=== PATIENT | female | born 1970 | race African-American/Black ===

== ENCOUNTER 2017-07-07 09:26 | Inpatient (IN) | payer MEDICAID, OTHER ==
[~2017-07-07] VITALS: Ht 149.9 cm; Wt 64.4 kg
[~2017-07-07 09:26] MED LIST: ALBUTEROL INH; CLONIDINE PO; HCTZ PO; IBUP-2030 PO; LOSA50TA20 PO; NORVASC PO
[2017-07-07 10:10] LABS: BASOPHILS % 0.8 % (0.0-2.0); EOSINOPHILS % 0.7 % (0.0-5.0); HEMATOCRIT. 36.7 % (36.0-48.0); HEMOGLOBIN. 12.4 g/dL (12.0-16.0); LYMPHOCYTES % 24.8 % (20.0-50.0); MEAN CORPUSCULAR HEMOGLOBIN 31.1 pg (28.0-32.0); MEAN CORPUSCULAR VOLUME 92.5 fL (81.0-99.0); MEAN PLATELET VOLUME 7.9 fl (7.4-10.4); NEUTROPHILS % 65.7 % (40.0-76.0); PLATELET 282 x1000/uL (130-400); RED BLOOD CELL COUNT 3.97 mill/uL (4.2-5.4); RED CELL DISTRIBUTION WIDTH 14.2 % (11.6-14.6)
[2017-07-07 10:15] LABS: CHLORIDE 105 mEq/L (98-107)
[2017-07-07] MEDS ORDERED: KETOROLAC 15MG/ML VIAL IV ONE (11:45)
[2017-07-07] MEDS ORDERED: ASPIRIN 81MG TABLET PO ONE (13:00)
[2017-07-07] MEDS ORDERED: MORPHINE SULFATE 4 MG/ML CPJ (NOT FOR IM USE) IV ONE (13:00)
[2017-07-07] MEDS: SODIUM CHLORIDE 0.45% 1,000 ML IV SCH (14:57)
[2017-07-07] MEDS ORDERED: LORAZEPAM 0.5MG TABLET PO PRN (15:00)
[2017-07-07] MEDS: LOSARTAN POTASSIUM 25 MG TABLET PO SCH ×2 (15:00→21:10)
[2017-07-07] MEDS ORDERED: NA PHOS,M-B/NA PHOS,DI-BA ENEMA 118ML PR PRN (15:00)
[2017-07-07] MEDS ORDERED: IPRATROPIUM/ALBUTEROL 0.5-3(2.5)MG/3ML NEB INH PRN (15:00)
[2017-07-07] MEDS ORDERED: ACETAMINOPHEN 650MG SUPP PR PRN (15:00)
[2017-07-07] MEDS ORDERED: DOCUSATE SODIUM 100MG CAPSULE PO PRN (15:00)
[2017-07-07] MEDS ORDERED: HYDROCODONE/ACETAMINOPHEN 10/325MG TABLET PO PRN (15:00)
[2017-07-07] MEDS ORDERED: CLONIDINE 0.1MG TABLET PO PRN (15:00)
[2017-07-07] MEDS ORDERED: MAGNESIUM/ALUMINUM HYDROXIDE/SIMETHICONE 30ML UDC PO PRN (15:00)
[2017-07-07] MEDS ORDERED: GUAIFENESIN 200MG/10ML SUGAR FREE UDC PO PRN (15:00)
[2017-07-07] MEDS: HYDROCHLOROTHIAZIDE 25MG TABLET PO SCH ×2 (15:00→21:10)
[2017-07-07] MEDS ORDERED: ONDANSETRON HCL 4MG/2ML VIAL IV PRN (15:00)
[2017-07-07] MEDS ORDERED: HYDROCODONE/ACETAMINOPHEN 5/325MG TABLET PO PRN (15:00)
[2017-07-07] MEDS ORDERED: DIPHENHYDRAMINE 50MG/ML VIAL IV PRN (15:00)
[2017-07-07] MEDS ORDERED: ACETAMINOPHEN 650MG/20.3ML UDC GT PRN (15:00)
[2017-07-07] MEDS ORDERED: ACETAMINOPHEN 325MG TABLET PO PRN (15:00)
[2017-07-07] MEDS ORDERED: MECLIZINE 12.5MG TABLET PO PRN (15:15)
[2017-07-07] MEDS ORDERED: ONDANSETRON 4MG ODT PO PRN (15:16)
[2017-07-07 15:26] VITALS: BP 135/73
[2017-07-07] MEDS: AMLODIPINE 5MG TABLET PO SCH ×3 (15:45→21:10)
[2017-07-07] MEDS ORDERED: REGADENOSON 0.4 MG/5 ML IV NR (15:45)
[2017-07-07] MEDS: MORPHINE SULFATE 4 MG/ML CPJ (NOT FOR IM USE) IV PRN ×2 (16:50→21:24)
[2017-07-07 18:27] VITALS: BP 135/73
[2017-07-07 19:23] LABS: CLARITY URINE CLEAR (CLEAR); COLOR URINE YELLOW (YELLOW); KETONES URINE NEGATIVE (NEGATIVE); LEUKOCYTE ESTERASE URINE NEGATIVE (NEGATIVE); NITRITE URINE NEGATIVE (NEGATIVE); OCCULT BLOOD URINE NEGATIVE (NEGATIVE); PH URINE 6.5 (4.5-8.0); PROTEIN URINE NEGATIVE (NEGATIVE); UROBILINOGEN URINE 0.2 E.U./dL (0.2-1.0)
[2017-07-07 19:35] LABS: UCG SCREEN NEGATIVE
[2017-07-07 20:00] VITALS: BP 126/64
[2017-07-07 20:14] LABS: CREATINE KINASE 66 IU/L (26-192)
[2017-07-07 20:16] LABS: CREATINE KINASE MB FRACTION 1.2 ng/mL (0.5-3.6)
[2017-07-07 20:43] LABS: *AMPHETAMINES SCREEN URINE NEGATIVE (NEGATIVE); *BARBITURATES SCREEN URINE NEGATIVE (NEGATIVE); *BENZODIAZEPINES SCREEN URINE NEGATIVE (NEGATIVE); *COCAINE SCREEN URINE NEGATIVE (NEGATIVE); CANNABINOID URINE SCREEN NEGATIVE (NEGATIVE); METHADONE URINE SCREEN NEGATIVE (NEGATIVE); PHENCYCLIDINE URINE SCREEN NEGATIVE (NEGATIVE)
[2017-07-07 20:44] LABS: OPIATES URINE SCREEN PRESUMTIVE POSITIVE (NEGATIVE)
[2017-07-07 23:47] LABS: CREATINE KINASE 62 IU/L (26-192)
[2017-07-08] VITALS (7 sets, daily range): BP systolic 126–171; BP diastolic 64–91
[2017-07-08] MEDS: SODIUM CHLORIDE 0.45% 1,000 ML IV SCH ×2 (00:57→21:06)
[2017-07-08] MEDS: MORPHINE SULFATE 4 MG/ML CPJ (NOT FOR IM USE) IV PRN ×5 (03:14→21:04)
[2017-07-08 07:06] LABS: CHLORIDE 101 mEq/L (98-107)
[2017-07-08 07:15] LABS: BASOPHILS % 0.5 % (0.0-2.0); EOSINOPHILS % 1.2 % (0.0-5.0); HEMATOCRIT. 36.2 % (36.0-48.0); HEMOGLOBIN. 12.1 g/dL (12.0-16.0); MEAN CORPUSCULAR HEMOGLOBIN 31.1 pg (28.0-32.0); MEAN CORPUSCULAR VOLUME 93.6 fL (81.0-99.0); MEAN PLATELET VOLUME 8.3 fl (7.4-10.4); MONOCYTES % 7.3 % (2.0-8.0); PLATELET 284 x1000/uL (130-400); RED BLOOD CELL COUNT 3.87 mill/uL (4.2-5.4)
[2017-07-08 07:16] LABS: LDL CHOLESTEROL 96 mg/dL (5-100)
[2017-07-08 07:18] LABS: HDL CHOLESTEROL 64 mg/dL (40-59)
[2017-07-08 07:19] LABS: PHOSPHORUS 4.3 mg/dL (2.5-4.9)
[2017-07-08 07:23] LABS: CREATINE KINASE 55 IU/L (26-192)
[2017-07-08 07:26] LABS: CREATINE KINASE MB FRACTION 0.9 ng/mL (0.5-3.6); T4 FREE 1.04 ng/dL (0.76-1.46)
[2017-07-08] MEDS: LOSARTAN POTASSIUM 25 MG TABLET PO SCH (09:00)
[2017-07-08] MEDS: AMLODIPINE 5MG TABLET PO SCH ×2 (09:00→21:03)
[2017-07-08] MEDS: HYDROCHLOROTHIAZIDE 25MG TABLET PO SCH (09:00)
[2017-07-08] MEDS ORDERED: REGADENOSON 0.4 MG/5 ML IV ONE (13:14)
[2017-07-09] MEDS: MORPHINE SULFATE 4 MG/ML CPJ (NOT FOR IM USE) IV PRN ×2 (03:27→08:40)
[2017-07-09 04:11] VITALS: BP 157/78
[2017-07-09] MEDS: SODIUM CHLORIDE 0.45% 1,000 ML IV SCH (06:08)
[2017-07-09 07:12] LABS: BASOPHILS % 0.4 % (0.0-2.0); EOSINOPHILS % 1.1 % (0.0-5.0); HEMATOCRIT. 38.8 % (36.0-48.0); HEMOGLOBIN. 13.1 g/dL (12.0-16.0); LYMPHOCYTES % 25.8 % (20.0-50.0); MEAN CORPUSCULAR HEMOGLOBIN 31.3 pg (28.0-32.0); MEAN CORPUSCULAR VOLUME 92.3 fL (81.0-99.0); MEAN PLATELET VOLUME 8.1 fl (7.4-10.4); MONOCYTES % 9.7 % (2.0-8.0); PLATELET 313 x1000/uL (130-400)
[2017-07-09 07:31] LABS: CHLORIDE 101 mEq/L (98-107)
[2017-07-09 07:40] LABS: PHOSPHORUS 3.6 mg/dL (2.5-4.9)
[2017-07-09] MEDS: LOSARTAN POTASSIUM 25 MG TABLET PO SCH ×2 (08:39→08:43)
[2017-07-09] MEDS: HYDROCHLOROTHIAZIDE 25MG TABLET PO SCH ×2 (08:39→08:43)
[2017-07-09] MEDS: AMLODIPINE 5MG TABLET PO SCH ×2 (08:39→08:43)
[2017-07-09 08:40] VITALS: BP 138/81
== END 2017-07-09 09:29 | disposition left against medical advice (07) | DRG 48 ==
LOC: ER 10:03 → 6WST 13:38 → ENRESERV 13:50
PROVIDERS: ADMIT Internal Medicine; ATTEND Internal Medicine
DX: G90.8 Other disorders of autonomic nervous system (principal); I10 Essential (primary) hypertension; R07.9 Chest pain, unspecified; I25.10 Atherosclerotic heart disease of native coronary artery without angina pectoris; Z53.21 Procedure and treatment not carried out due to patient leaving prior to being seen by health care provider; J45.909 Unspecified asthma, uncomplicated; R42 Dizziness and giddiness; W19.XXXA Unspecified fall, initial encounter; Y93.89 Activity, other specified; Y92.89 Other specified places as the place of occurrence of the external cause; I25.2 Old myocardial infarction; Y99.8 Other external cause status; Z82.3 Family history of stroke; Z82.49 Family history of ischemic heart disease and other diseases of the circulatory system; Z90.49 Acquired absence of other specified parts of digestive tract; Z79.899 Other long term (current) drug therapy; Z88.0 Allergy status to penicillin; Z79.1 Long term (current) use of non-steroidal anti-inflammatories (NSAID); Z72.89 Other problems related to lifestyle
CPT/HCPCS: 36415; 71045; 71110; 73030; 78452; 80048; 80053; 80061; 80305; 81003; 81025; 82550; 82553; 83735; 83880; 84100; 84439; 84443; 84481; 84484; 85025; 85379; 85610; 93005; 93017; 93306; 93880; 96374; 96375; 97162; 99285; A9500; J1885; J2270; J2785

== ENCOUNTER 2017-08-02 07:45 | Emergency (ER) | payer MEDICAID ==
[~2017-08-02] VITALS: Ht 149.9 cm; Wt 64.0 kg
[2017-08-02] MEDS ORDERED: ONDANSETRON HCL 4MG/2ML VIAL IV ONE (08:15)
[2017-08-02] MEDS ORDERED: SODIUM CHLORIDE 0.9% 1,000 ML IV ONE (08:15)
[2017-08-02 08:23] LABS: BASOPHILS % 0.9 % (0.0-2.0); EOSINOPHILS % 1.5 % (0.0-5.0); HEMATOCRIT. 36.1 % (36.0-48.0); MEAN CORPUSCULAR HEMOGLOBIN 31.1 pg (28.0-32.0); MEAN CORPUSCULAR VOLUME 93.6 fL (81.0-99.0); MEAN PLATELET VOLUME 7.9 fl (7.4-10.4); MONOCYTES % 13.6 % (2.0-8.0); PLATELET 220 x1000/uL (130-400); RED BLOOD CELL COUNT 3.85 mill/uL (4.2-5.4); RED CELL DISTRIBUTION WIDTH 14.4 % (11.6-14.6)
[2017-08-02 08:29] LABS: CHLORIDE 105 mEq/L (98-107)
[2017-08-02 08:30] LABS: PROTHROMBIN TIME 10.3 sec (9.4-11.6)
[2017-08-02] MEDS ORDERED: KETOROLAC 15MG/ML VIAL IV ONE (08:45)
[2017-08-02] MEDS ORDERED: SODIUM CHLORIDE 0.9% 1,000 ML IV NR (09:45)
[2017-08-02] MEDS ORDERED: ACETAMINOPHEN 325MG TABLET PO NR (09:45)
[2017-08-02 09:59] VITALS: BP 103/65
[2017-08-02] MEDS ORDERED: POTASSIUM CHLORIDE 20MEQ TABLET SR PO NR (10:00)
== END 2017-08-02 10:01 | disposition home or self-care (01) ==
LOC: ER 08:55
DX: B34.9 Viral infection, unspecified (principal); R11.0 Nausea; E86.0 Dehydration; R19.7 Diarrhea, unspecified; E87.6 Hypokalemia; R73.9 Hyperglycemia, unspecified; M79.1 Myalgia; D72.819 Decreased white blood cell count, unspecified; I25.2 Old myocardial infarction; I10 Essential (primary) hypertension; Z88.0 Allergy status to penicillin
CPT/HCPCS: 36415; 71045; 80053; 83880; 84484; 85025; 85610; 93005; 96361; 96374; 96375; 99285; J1885; J2405; J7030; Z7610

== ENCOUNTER 2017-09-13 23:07 | Observation (INO) | payer MEDICAID ==
[~2017-09-13] VITALS: Ht 149.9 cm; Wt 70.3 kg
[2017-09-14] MEDS ORDERED: ASPIRIN 81MG TABLET PO ONE (02:00)
[2017-09-14 02:53] LABS: CHLORIDE 107 mEq/L (98-107)
[2017-09-14 02:54] LABS: BASOPHILS % 0.7 % (0.0-2.0); EOSINOPHILS % 1.8 % (0.0-5.0); HEMATOCRIT. 35.6 % (36.0-48.0); LYMPHOCYTES % 42.3 % (20.0-50.0); MEAN CORPUSCULAR HEMOGLOBIN 31.2 pg (28.0-32.0); MEAN CORPUSCULAR VOLUME 92.4 fL (81.0-99.0); MEAN PLATELET VOLUME 7.8 fl (7.4-10.4); MONOCYTES % 8.7 % (2.0-8.0); NEUTROPHILS % 46.5 % (40.0-76.0); PLATELET 283 x1000/uL (130-400); RED BLOOD CELL COUNT 3.85 mill/uL (4.2-5.4); RED CELL DISTRIBUTION WIDTH 14.1 % (11.6-14.6)
[2017-09-14 03:00] LABS: ETHANOL BLOOD < 10 mg/dL
[2017-09-14 03:06] LABS: HCG SCREEN NEGATIVE
[2017-09-14 04:12] LABS: CLARITY URINE CLEAR (CLEAR); COLOR URINE YELLOW (YELLOW); KETONES URINE NEGATIVE (NEGATIVE); LEUKOCYTE ESTERASE URINE NEGATIVE (NEGATIVE); NITRITE URINE NEGATIVE (NEGATIVE); OCCULT BLOOD URINE NEGATIVE (NEGATIVE); PH URINE 6.5 (4.5-8.0); PROTEIN URINE NEGATIVE (NEGATIVE); SPECIFIC GRAVITY URINE 1.025 (1.005-1.030); UROBILINOGEN URINE 0.2 E.U./dL (0.2-1.0)
[2017-09-14 04:29] LABS: *AMPHETAMINES SCREEN URINE NEGATIVE (NEGATIVE)
[2017-09-14 04:30] LABS: *BARBITURATES SCREEN URINE NEGATIVE (NEGATIVE); *BENZODIAZEPINES SCREEN URINE NEGATIVE (NEGATIVE); *COCAINE SCREEN URINE NEGATIVE (NEGATIVE); METHADONE URINE SCREEN NEGATIVE (NEGATIVE); OPIATES URINE SCREEN NEGATIVE (NEGATIVE); PHENCYCLIDINE URINE SCREEN NEGATIVE (NEGATIVE)
[2017-09-14 04:31] LABS: CANNABINOID URINE SCREEN NEGATIVE (NEGATIVE)
[2017-09-14 09:00] VITALS: BP 145/86
[2017-09-14] MEDS ORDERED: DOCUSATE SODIUM 100MG CAPSULE PO PRN (11:00)
[2017-09-14] MEDS ORDERED: ONDANSETRON 4MG ODT PO PRN (11:00)
[2017-09-14] MEDS ORDERED: HYDROCODONE/ACETAMINOPHEN 10/325MG TABLET PO PRN (11:00)
[2017-09-14] MEDS ORDERED: MAGNESIUM/ALUMINUM HYDROXIDE/SIMETHICONE 30ML UDC PO PRN (11:00)
[2017-09-14] MEDS ORDERED: ONDANSETRON HCL 4MG/2ML VIAL IV PRN (11:00)
[2017-09-14] MEDS ORDERED: ACETAMINOPHEN 650MG SUPP PR PRN (11:00)
[2017-09-14] MEDS ORDERED: ACETAMINOPHEN 325MG TABLET PO PRN (11:00)
[2017-09-14] MEDS ORDERED: ACETAMINOPHEN 650MG/20.3ML UDC GT PRN (11:00)
[2017-09-14] MEDS ORDERED: GUAIFENESIN 200MG/10ML SUGAR FREE UDC PO PRN (11:00)
[2017-09-14] MEDS ORDERED: LORAZEPAM 0.5MG TABLET PO PRN (11:00)
[2017-09-14] MEDS ORDERED: HYDROCODONE/ACETAMINOPHEN 5/325MG TABLET PO PRN (11:00)
[2017-09-14 12:30] VITALS: BP 127/61
[2017-09-14 13:19] VITALS: BP_SYST 127; BP_SYST 135; BP_SYST 140; BP_DIAS 76; BP_DIAS 89
[2017-09-14] MEDS: MORPHINE SULFATE 4 MG/ML CPJ (NOT FOR IM USE) IV PRN ×3 (14:13→23:05)
[2017-09-14] MEDS: IPRATROPIUM/ALBUTEROL 0.5-3(2.5)MG/3ML NEB INH SCH ×2 (14:20→19:54)
[2017-09-14 16:00] VITALS: BP 127/86
[2017-09-14 16:24] LABS: CREATINE KINASE 425 IU/L (26-192)
[2017-09-14 16:25] LABS: CREATINE KINASE MB FRACTION 1.9 ng/mL (0.5-3.6)
[2017-09-14] MEDS: LOSARTAN POTASSIUM 50 MG TABLET PO SCH (16:37)
[2017-09-14 20:00] VITALS: BP_SYST 119; BP_SYST 130; BP_SYST 131; BP_DIAS 70; BP_DIAS 84; BP_DIAS 86
[2017-09-14 23:44] LABS: CREATINE KINASE MB FRACTION 1.5 ng/mL (0.5-3.6)
[2017-09-15] VITALS: BP 120/68
[2017-09-15] MEDS: IPRATROPIUM/ALBUTEROL 0.5-3(2.5)MG/3ML NEB INH SCH (01:47)
[2017-09-15] MEDS: MORPHINE SULFATE 4 MG/ML CPJ (NOT FOR IM USE) IV PRN ×2 (03:08→08:27)
[2017-09-15 04:00] VITALS: BP 114/49
[2017-09-15 07:27] LABS: BASOPHILS % 0.6 % (0.0-2.0); EOSINOPHILS % 2.3 % (0.0-5.0); HEMATOCRIT. 34.8 % (36.0-48.0); HEMOGLOBIN. 11.6 g/dL (12.0-16.0); LYMPHOCYTES % 49.7 % (20.0-50.0); MEAN CORPUSCULAR HEMOGLOBIN 30.9 pg (28.0-32.0); MEAN CORPUSCULAR VOLUME 93.2 fL (81.0-99.0); NEUTROPHILS % 37.4 % (40.0-76.0); PLATELET 244 x1000/uL (130-400); RED BLOOD CELL COUNT 3.74 mill/uL (4.2-5.4)
[2017-09-15 07:40] LABS: CHLORIDE 103 mEq/L (98-107)
[2017-09-15 07:45] LABS: PHOSPHORUS 3.8 mg/dL (2.5-4.9)
[2017-09-15 07:48] LABS: HDL CHOLESTEROL 37 mg/dL (40-59); LDL CHOLESTEROL 101 mg/dL (5-100)
[2017-09-15 07:51] LABS: T4 FREE 0.96 ng/dL (0.76-1.46)
[2017-09-15 08:00] VITALS: BP 131/75
[2017-09-15] MEDS: LOSARTAN POTASSIUM 50 MG TABLET PO SCH (09:09)
[2017-09-15 11:59] VITALS: BP 131/75
== END 2017-09-15 12:20 | disposition home or self-care (01) ==
LOC: ER 09-14 01:56 → 6WST 09-14 02:55 → INTOOBSV 09-14 02:55 → ENRESERV 09-14 07:32
PROVIDERS: ADMIT Internal Medicine; ATTEND Internal Medicine
DX: R07.89 Other chest pain (principal); R53.83 Other fatigue; I89.0 Lymphedema, not elsewhere classified; E66.9 Obesity, unspecified; E86.0 Dehydration; F10.10 Alcohol abuse, uncomplicated; I10 Essential (primary) hypertension; I25.10 Atherosclerotic heart disease of native coronary artery without angina pectoris; I25.2 Old myocardial infarction; R06.02 Shortness of breath; W19.XXXA Unspecified fall, initial encounter; Z79.899 Other long term (current) drug therapy; Z90.49 Acquired absence of other specified parts of digestive tract; Z90.710 Acquired absence of both cervix and uterus
CPT/HCPCS: 36415; 71045; 80053; 80061; 80305; 81003; 82550; 82553; 83690; 83735; 83880; 84100; 84439; 84443; 84481; 84484; 84703; 85025; 85610; 93005; 93970; 96374; 96376; 99285; G0378; G0482; J2270; Q0162; J7620

== ENCOUNTER 2018-11-25 18:55 | Emergency (ER) | payer OTHER ==
[~2018-11-25] VITALS: Ht 160 cm; Wt 73.0 kg
[~2018-11-25 18:55] MED LIST changes: -CLONIDINE PO; -HCTZ PO; -LOSA50TA20 PO; +LOSA50TA41 PO; -NORVASC PO
[2018-11-25] MEDS ORDERED: KETOROLAC 15MG/ML VIAL IV ONE (20:00)
[2018-11-25] MEDS ORDERED: ASPIRIN 81MG TABLET PO ONE (20:15)
[2018-11-25 20:49] LABS: BASOPHILS % 0.5 % (0.0-2.0); EOSINOPHILS % 1.2 % (0.0-5.0); HEMATOCRIT. 35.8 % (36.0-48.0); HEMOGLOBIN. 11.9 g/dL (12.0-16.0); LYMPHOCYTES % 37.3 % (20.0-50.0); MEAN CORPUSCULAR HEMOGLOBIN 30.1 pg (28.0-32.0); MEAN CORPUSCULAR VOLUME 90.6 fL (81.0-99.0); MONOCYTES % 12.2 % (2.0-8.0); NEUTROPHILS % 48.8 % (40.0-76.0); PLATELET 261 x1000/uL (130-400); RED BLOOD CELL COUNT 3.95 mill/uL (4.2-5.4); RED CELL DISTRIBUTION WIDTH 14.5 % (11.6-14.6)
[2018-11-25 20:51] LABS: CHLORIDE 107 mEq/L (98-107)
[2018-11-25] MEDS: NITROGLYCERIN 0.4MG TABLET SL SL PRN ×3 (21:21→23:20)
[2018-11-25] MEDS ORDERED: ACETAMINOPHEN WITH CODEINE 300/30MG TABLET PO ONE (21:45)
[2018-11-26] MEDS ORDERED: ACETAMINOPHEN WITH CODEINE 300/30MG TABLET PO ONE (00:45)
[2018-11-26] MEDS ORDERED: KETOROLAC 15MG/ML VIAL IV ONE (00:45)
[2018-11-26 00:58] VITALS: BP 119/72
== END 2018-11-26 01:00 | disposition left against medical advice (07) ==
LOC: ER 18:55 → CANBEDREQ 11-26 01:18
DX: R07.89 Other chest pain (principal); I20.9 Angina pectoris, unspecified; I10 Essential (primary) hypertension; I25.2 Old myocardial infarction; E87.6 Hypokalemia; Z90.49 Acquired absence of other specified parts of digestive tract; Z90.710 Acquired absence of both cervix and uterus; Z88.0 Allergy status to penicillin; Z88.6 Allergy status to analgesic agent
CPT/HCPCS: 36415; 70450; 71045; 73560; 80053; 83880; 84484; 85025; 93005; 99284; Z7610; J1885

== ENCOUNTER 2018-12-19 18:37 | Emergency (ER) | payer OTHER ==
[~2018-12-19] VITALS: Ht 149.9 cm; Wt 64.0 kg
[2018-12-19] MEDS ORDERED: SODIUM CHLORIDE 0.9% 500 ML IV ONE (19:30)
[2018-12-19] MEDS ORDERED: ASPIRIN 325MG TABLET PO ONE (19:30)
[2018-12-19] MEDS ORDERED: NITROGLYCERIN 0.4MG TABLET SL SL ONE (20:00)
[2018-12-19] MEDS ORDERED: ONDANSETRON 4MG ODT PO ONE (20:00)
[2018-12-19 20:43] LABS: BASOPHILS % 0.8 % (0.0-2.0); EOSINOPHILS % 1.9 % (0.0-5.0); HEMOGLOBIN. 13.1 g/dL (12.0-16.0); MEAN CORPUSCULAR HEMOGLOBIN 30.3 pg (28.0-32.0); MEAN CORPUSCULAR VOLUME 90.6 fL (81.0-99.0); MONOCYTES % 8.2 % (2.0-8.0); NEUTROPHILS % 43.1 % (40.0-76.0); PLATELET 251 x1000/uL (130-400); RED BLOOD CELL COUNT 4.31 mill/uL (4.2-5.4); RED CELL DISTRIBUTION WIDTH 14.4 % (11.6-14.6)
[2018-12-19 20:50] LABS: CHLORIDE 105 mEq/L (98-107)
[2018-12-19] MEDS ORDERED: HYDROCODONE/ACETAMINOPHEN 5/325MG TABLET PO ONE (21:00)
[2018-12-19 21:49] LABS: CLARITY URINE CLEAR (CLEAR); COLOR URINE YELLOW (YELLOW); KETONES URINE NEGATIVE (NEGATIVE); LEUKOCYTE ESTERASE URINE NEGATIVE (NEGATIVE); NITRITE URINE NEGATIVE (NEGATIVE); OCCULT BLOOD URINE NEGATIVE (NEGATIVE); PH URINE 5.5 (4.5-8.0); PROTEIN URINE NEGATIVE (NEGATIVE); SPECIFIC GRAVITY URINE 1.022 (1.005-1.030); UROBILINOGEN URINE 0.2 E.U./dL (0.2-1.0)
[2018-12-19 23:32] VITALS: BP 119/74
== END 2018-12-19 23:56 | disposition short-term general hospital (02) ==
LOC: ER 18:37 → CANBEDREQ 12-20 01:00
DX: R55 Syncope and collapse (principal); R07.89 Other chest pain; I10 Essential (primary) hypertension; I25.2 Old myocardial infarction; Z90.49 Acquired absence of other specified parts of digestive tract; Z88.0 Allergy status to penicillin
CPT/HCPCS: 36415; 71045; 73562; 80053; 81003; 82962; 83880; 84484; 85025; 93005; 99285; J7040; Q0162

== ENCOUNTER 2019-02-01 08:26 | Emergency (ER) | payer OTHER ==
[~2019-02-01] VITALS: Ht 149.9 cm; Wt 68.0 kg
[2019-02-01 09:20] LABS: BASOPHILS % 0.6 % (0.0-2.0); EOSINOPHILS % 1.6 % (0.0-5.0); HEMATOCRIT. 38.9 % (36.0-48.0); HEMOGLOBIN. 13.1 g/dL (12.0-16.0); LYMPHOCYTES % 42.3 % (20.0-50.0); MEAN CORPUSCULAR VOLUME 89.6 fL (81.0-99.0); MEAN PLATELET VOLUME 7.7 fl (7.4-10.4); MONOCYTES % 8.6 % (2.0-8.0); NEUTROPHILS % 46.9 % (40.0-76.0); PLATELET 269 x1000/uL (130-400); RED BLOOD CELL COUNT 4.35 mill/uL (4.2-5.4); RED CELL DISTRIBUTION WIDTH 13.6 % (11.6-14.6)
[2019-02-01 09:23] LABS: CHLORIDE 106 mEq/L (98-107)
[2019-02-01] MEDS: ONDANSETRON 4MG ODT PO ONE (09:32)
[2019-02-01] MEDS: KETOROLAC 15MG/ML VIAL IM ONE (09:35)
[2019-02-01] MEDS: SODIUM CHLORIDE 0.9% 1,000 ML IV ONE (09:49)
[2019-02-01] MEDS: OXYCODONE HCL/ACETAMINOPHEN 5/325MG TABLET PO ONE (10:46)
[2019-02-01 10:58] VITALS: BP 140/71
== END 2019-02-01 11:01 | disposition home or self-care (01) ==
LOC: ER 08:26
DX: R55 Syncope and collapse (principal); M25.511 Pain in right shoulder; R07.81 Pleurodynia; I10 Essential (primary) hypertension; I25.2 Old myocardial infarction; Z88.0 Allergy status to penicillin; Z90.49 Acquired absence of other specified parts of digestive tract; Z90.710 Acquired absence of both cervix and uterus; W01.0XXA Fall on same level from slipping, tripping and stumbling without subsequent striking against object, initial encounter; Y93.89 Activity, other specified; Y92.018 Other place in single-family (private) house as the place of occurrence of the external cause
CPT/HCPCS: 36415; 71045; 73030; 80053; 83880; 84484; 85025; 93005; 96360; 96372; 99284; J1885; J7030; Q0162; Z7610

== ENCOUNTER 2019-02-21 02:56 | Emergency (ER) | payer OTHER ==
[~2019-02-21] VITALS: Ht 149.9 cm; Wt 69.5 kg
[2019-02-21] MEDS ORDERED: MORPHINE SULFATE 4 MG/ML CPJ (NOT FOR IM USE) IV ONE (06:45)
[2019-02-21 07:35] LABS: BASOPHILS % 0.6 % (0.0-2.0); EOSINOPHILS % 1.5 % (0.0-5.0); HEMATOCRIT. 37.7 % (36.0-48.0); HEMOGLOBIN. 12.6 g/dL (12.0-16.0); LYMPHOCYTES % 36.1 % (20.0-50.0); MEAN CORPUSCULAR HEMOGLOBIN 30.2 pg (28.0-32.0); MEAN CORPUSCULAR VOLUME 90.6 fL (81.0-99.0); MEAN PLATELET VOLUME 7.4 fl (7.4-10.4); MONOCYTES % 8.1 % (2.0-8.0); NEUTROPHILS % 53.7 % (40.0-76.0); PLATELET 225 x1000/uL (130-400); RED BLOOD CELL COUNT 4.17 mill/uL (4.2-5.4); RED CELL DISTRIBUTION WIDTH 13.9 % (11.6-14.6)
[2019-02-21 07:42] LABS: CHLORIDE 107 mEq/L (98-107)
[2019-02-21] MEDS ORDERED: KETOROLAC 30MG/ML VIAL IV ONE (10:30)
[2019-02-21 10:45] VITALS: BP 112/89
== END 2019-02-21 10:52 | disposition short-term general hospital (02) ==
LOC: ER 02:56 → EDBEDREQ 08:59 → ER 10:52 → CANBEDREQ 11:00
DX: M79.641 Pain in right hand (principal); R55 Syncope and collapse; R07.89 Other chest pain; M25.511 Pain in right shoulder; R11.2 Nausea with vomiting, unspecified; I10 Essential (primary) hypertension; I25.2 Old myocardial infarction; Z88.0 Allergy status to penicillin
CPT/HCPCS: 36415; 71045; 73030; 73130; 80053; 84484; 85025; 93005; 96374; 96375; 99285; J1885; J2270

== ENCOUNTER 2019-03-09 09:39 | Emergency (ER) | payer OTHER ==
[~2019-03-09] VITALS: Ht 154.9 cm; Wt 67.0 kg
[2019-03-09 11:19] LABS: BASOPHILS % 0.7 % (0.0-2.0); EOSINOPHILS % 0.8 % (0.0-5.0); HEMATOCRIT. 37.4 % (36.0-48.0); HEMOGLOBIN. 12.8 g/dL (12.0-16.0); LYMPHOCYTES % 36.7 % (20.0-50.0); MEAN CORPUSCULAR HEMOGLOBIN 31.1 pg (28.0-32.0); MEAN CORPUSCULAR VOLUME 90.8 fL (81.0-99.0); MEAN PLATELET VOLUME 7.8 fl (7.4-10.4); MONOCYTES % 9.7 % (2.0-8.0); NEUTROPHILS % 52.1 % (40.0-76.0); PLATELET 339 x1000/uL (130-400); RED BLOOD CELL COUNT 4.12 mill/uL (4.2-5.4); RED CELL DISTRIBUTION WIDTH 14.1 % (11.6-14.6)
[2019-03-09] MEDS ORDERED: KETOROLAC 30MG/ML VIAL IV ONE (11:45)
[2019-03-09] MEDS ORDERED: MORPHINE SULFATE 4 MG/ML CPJ (NOT FOR IM USE) IV ONE (12:45)
[2019-03-09 13:29] LABS: CHLORIDE 108 mEq/L (98-107)
[2019-03-09] MEDS ORDERED: DIPHENHYDRAMINE 50MG/ML VIAL IV PRN (14:30)
[2019-03-09] MEDS ORDERED: GUAIFENESIN 200MG/10ML SUGAR FREE UDC PO PRN (14:30)
[2019-03-09] MEDS ORDERED: ENOXAPARIN 40MG/0.4ML SYR SUBCUT SCH (14:30)
[2019-03-09] MEDS ORDERED: ONDANSETRON HCL 4MG/2ML INJ IV PRN (14:30)
[2019-03-09] MEDS ORDERED: ACETAMINOPHEN 325MG TABLET PO PRN (14:30)
[2019-03-09] MEDS ORDERED: CLONIDINE 0.1MG TABLET PO PRN (14:30)
[2019-03-09 14:47] LABS: PHOSPHORUS 4.2 mg/dL (2.5-4.9)
[2019-03-09 18:40] VITALS: BP 126/67
== END 2019-03-09 18:58 | disposition short-term general hospital (02) ==
LOC: ER 09:39 → EDBEDREQTM 13:05 → EDBEDREQ 13:05 → CANBEDREQ 13:13 → ER 18:58
DX: R55 Syncope and collapse (principal); I10 Essential (primary) hypertension; I25.2 Old myocardial infarction; Z88.0 Allergy status to penicillin; W01.0XXA Fall on same level from slipping, tripping and stumbling without subsequent striking against object, initial encounter; Y93.89 Activity, other specified; Y92.22 Religious institution as the place of occurrence of the external cause
CPT/HCPCS: 36415; 71045; 73030; 73060; 73120; 80053; 81025; 83735; 83880; 84100; 84484; 85025; 85379; 93005; 93970; 96374; 96375; 99285; J1885; J2270; J2405